=== PATIENT | female | born 1965 | race Two or more races ===

== ENCOUNTER 2024-10-05 10:30 | Outpatient (RCR) | payer MEDICAID, SELFPAY ==
--- NOTE | 2024-09-23 11:42 | PT.ODAYNRPT ---
PT Outpatient Daily Note OP Daily Note Outpatient Physical Therapy Treatment Date: 09/23/24 Visit Reasons: Pain in Left shoulder Subjective: It feels good to stretch the shoulder she said after the andrea HUERTA Objective: See f/S for therex MHP during wansheryl sykes Assessment: Good ER with andrea HUERTA therex Plan: Improve L shoulder ROM Length of Time (minutes) of Treatment: 30 Minutes Procedure Charges Therapeutic Exercise 30 minutes: Yes
--- NOTE | 2024-09-29 13:09 | PT.ODAYNRPT ---
PT Outpatient Daily Note OP Daily Note Outpatient Physical Therapy Treatment Date: 09/29/24 Visit Reasons: Pain in Left shoulder Subjective: Pt reports L shoulder is doing ok, still stiff and achy. Objective: Please see flow sheet for ther ex list. Assessment: AAROM activities completed with pain end range. Plan: Continue with POC. Length of Time (minutes) of Treatment: 30 Minutes Procedure Charges Therapeutic Exercise 30 minutes: Yes
--- NOTE | 2024-10-05 17:35 | PT.ODAYNRPT ---
PT Outpatient Daily Note OP Daily Note Outpatient Physical Therapy Treatment Date: 10/05/24 Visit Reasons: Pain in Left shoulder Subjective: It feels good to stretch the shoulder she said after the wand AAROM Objective: See f/S for therex MHP during wand therex MT: PPM into FF, abd and ER x5' PROM ER: 30 deg Assessment: Continued capsular tightness and pain limits A/PROM. Limited ER PROM. Plan: Improve L shoulder ROM Length of Time (minutes) of Treatment: 30 Minutes Procedure Charges Therapeutic Exercise 30 minutes: Yes
== END 2024-10-16 23:59 | disposition home or self-care (01) ==
LOC: CPTX 10:30
PROVIDERS: PCP Physician Assistant; Referring Provider Physician Assistant; Visit Provider Physician Assistant
DX: M25.512 Pain in left shoulder (principal)
CPT/HCPCS: 97110

== ENCOUNTER 2024-10-18 09:52 | Outpatient (RCR) | payer MEDICAID, SELFPAY ==
--- NOTE | 2024-10-18 10:39 | PTNOTE_ITS ---
PT OP Progress/Discharge Note Date of Service: 10/18/24 Progress Note/DC Note Progress Note/Discharge Note: Progress Note Patient Information Visit Reasons: Pain in left shoulder Service Continue Service or Discharge: Continue Service Status Subjective: Pt reports increased AROM of L shoulder since starting therapy, wants to continue Objective: L shoulder AROM: FF: 105 Abd: 100 ER: 80 Strength: 3+/5 in all planes MT: PPM into FF, abd and ER x7' Assessment: Pt has attended 4/4 therapy sessions with good improvement with AROM but hasn't met goals due to continue L shoulder tightness consistent with adhesive capusli tis. Pt would benefit from continued therapy to meet goals. Plan: Request additional visits x8 to meet goals Procedure Charges Therapeutic Exercise 30 minutes: Yes
== END 2024-11-16 23:59 | disposition home or self-care (01) ==
LOC: CPTX 09:52
PROVIDERS: PCP Physician Assistant; Referring Provider Physician Assistant; Visit Provider Physician Assistant
DX: M25.512 Pain in left shoulder (principal)
CPT/HCPCS: 97110

== ENCOUNTER 2025-01-21 16:50 | Emergency (ER) | payer MEDICAID, SELFPAY ==
[2025-01-21 17:01] VITALS: BP 114/77; PULSE 88; RESP 18; TEMP 36.9; O2SAT 99; BMI 26.9
--- NOTE | 2025-01-21 17:11 | EDNOTE_ITS ---
<Statement entered by Adelaida Mcgrath MD - 01/22/25 16:16> As co-signing physician, I was present and available for consult prn. I concur with the plan and care as documented by the midlevel provider. ED Eye Problem RME/HPI General Chief complaint: Eye Problems Stated complaint: CHILE SPLASHED INTO RIGHT EYE Time Seen by Provider: 01/21/25 17:11 Arrival date/time: 01/21/25 16:50 59-year-old female presents emergency department today stating that she got some chili spicy liquid in her right eye patient reports pain to the right eye with burning Limitations: no limitations Related Data Home Medications ?Medication ?Instructions ?Recorded ?Confirmed metformin 500 mg tablet 500 mg PO BID 04/07/2004/07 Previous Rx's ?Medication ?Instructions ?Recorded docusate sodium 100 mg capsule 100 mg PO BID #30 caps 04/11/20 (Colace) hydrocodone 5 mg-acetaminophen 325 1 tab PO Q6H PRN pa in #20 tabs 04/11/20 mg tablet (Buda) ibuprofen 600 mg tablet 600 mg PO Q8HR PRN pain (sca le 04/11/20 score 4-6) #10 tabs ibuprofen 600 mg tablet 600 mg PO TID PRN pain #30 t abs 12/15/23 hydrocodone 5 mg-acetaminophen 325 1 tab PO BID PRN pa in #10 tabs 05/15/24 mg tablet tobramycin 0.3 % eye drops 2 drp ophthalmic (eye) Q4H 5 days 01/21/25 #5 mL Allergies Allergy/AdvReac Type Severity Reaction Status Date / Time No Known Allergies Allergy Verified 01/21/25 16:51 Review of Systems Review of Systems Systems Reviewed: All systems reviewed, normal except as documented Constitutional Constitutional: Reports system reviewed and no additional complaints, except as documented, Denies fever(s) and Denies headache(s) Eyes Eyes: Reports system reviewed and no additional complaints, except as documented, Denies blind spots, Denies blurry vision, Reports irritation and Reports other (Conjunctival injection right eye) ENT Ears, Nose, Mouth, and Throat: Reports system reviewed and no additional complaints, except as documented, Denies headache(s), Denies nasal congestion and Denies nasal discharge Cardiovascular Cardiovascular: Reports system reviewed and no additional complaints, except as documented, Denies chest pain and Denies dyspnea Respiratory Respiratory: Reports system reviewed and no additional complaints, except as documented, Denies chest congestion, Denies cough and Denies dyspnea Gastrointestinal Gastrointestinal: Reports system reviewed and no additional complaints, except as documented and Denies abdominal pain Integumentary/Breasts Skin/Breast: Reports system reviewed and no additional complaints, except as documented and Denies rash Neurologic Neurologic: Reports system reviewed and no additional complaints, except as documented, Reports as per HPI and Denies headache(s) Past Medical History Past Medical History NEUROLOGIC: Negative Neurological Disorders or Seizures CARDIAC: Positive Cardiac Disorders and Hypercholesterolemia; Negative Congestive Heart Failure RESPIRATORY: Negative Chronic Obstructive Pulmonary Disease (COPD), Tuberculosis or Sleep Apnea GASTROINTESTINAL: Positive Gastrointestinal Disorders and Gall Bladder Disease; Negative Hepatitis GENITOURINARY: Negative Genitourinary Disorders or Renal Disease REPRODUCTIVE: Positive Previous Pregnancies MUSCULOSKELETAL: Negative Musculoskeletal Disorders ENDOCRINE: Positive Endocrine Disorders and Diabetes Mellitus Type 2; Negative Diabetes Mellitus Type 1 HEMATOLOGIC: Negative Blood Disorders OTHER HISTORY: Negative Hospitalization, Autoimmune Disease, Shingles, Falls, Blood Transfusions, Blood Transfusion Reaction, Anesthesia Reactions, Chemotherapy, Radiation Therapy, MRSA, Chicken Pox, Measles, Mumps or Cancer Family History FAMILY HISTORY: Positive Family Cardiac Disorders, Family Gastrointestinal Problems and Family Surgery; Negative Family Psychiatric Problems, Family Respiratory Disorders, Family Cancer or Family Anesthesia Reaction Social History SMOKING STATUS: Never smoker ED Exam General Limitations: Present no limitations General appearance: Present alert and in no apparent distress Head Head exam: Present atraumatic Eye Eye exam: Present PERRL, EOMI and conjunctival injection ENT ENT exam: Present normal exam, normal oropharynx and mucous membranes moist Neck Neck exam: Present normal inspection, full ROM and trachea midline Chest Chest inspection: Present normal inspection and symmetric chest wall rise Respiratory Respiratory exam: Present normal lung sounds bilaterally Cardiovascular Cardiovascular exam: Present regular rate, normal rhythm and normal heart sounds Abdominal Exam Abdominal exam: Present soft and normal bowel sounds Extremities Exam Extremities exam: Present normal inspection and full ROM Back Exam Back exam: Present normal inspection and full ROM Neurological Exam Neurological exam: Present alert, oriented X3 and CN II-XII intact Psychiatric Psychiatric exam: Present normal affect and normal mood Skin Skin exam: Present warm, dry, intact and normal color Course Quality Measures none Orders Category Date Time Status ED Eye Irrigation ONCE Care 01/21/25 17:11 Active Schulz Lamp to Bedside X1 Care 01/21/25 17:11 Active TETRACAINE Op Ashley 0.5% [Pontocaine Op Ashley 0.5%] Med 01/21/25 17:11 Discontinued 1 drop RIGHT EYE X1 ONE Vital Signs Vital signs: Vital Signs Temperature 98.5 F 01/21/25 17:01 Pulse Rate 88 01/21/25 17:01 Respiratory Rate 18 01/21/25 17:01 Blood Pressure 114/77 01/21/25 17:01 Pulse Oximetry (%) 99 01/21/25 17:01 Oxygen Delivery Method Room Air 01/21/25 17:01 O2 saturation 99% on room air within normal limits Eye MDM Narrative MDM Narrative:: 59-year-old female presents emergency department today stating that she got some chili spicy liquid in her right eye patient reports pain to the right eye with burning On exam no acute abnormality noted patient has slight conjunctival injection pupil is normal no hyphema Tetracaine applied to the right eye eyes irrigated copiously patient report symptoms have improved Patient reports no disturbances in vision patient struck to follow-up with eye doctor soon as possible for emergent concerns return immediately Patient data External records reviewed:: [facility] previous records Clinical information provided by:: patient Social determinants that could affect healthcare access:: none Patient has the following chronic illnesses:: None How is presenting disease/condition affected by chronic disease/condition?: no chronic disease Evaluation data The following diagnostics were reviewed and interpreted by me:: other (specify) Lab and/or radiology exams considered but not ordered:: Consider not ordered Interpretation Summary: N/A Medications / Prescriptions Medications or Prescriptions considered but not ordered:: Given Medication administrations:: Medication Administration History Discontinued Medications Tetracaine HCl (Tetracaine Pf Op Ashley 0.5% 4 Ml Drpette) 1 drop RIGHT EYE X1 ONE Stop: 01/21/25 17:12 Last Admin: 01/21/25 17:19 Dose: 1 drop Documented By: Given Consultations Consultation(s) initiated? (list below): No Diagnosis Eye Problem Differential Diagnosis: corneal abrasion, conjunctivitis and corneal ulcer Most likely diagnosis given after review of the tests above:: Irritation right eye Admission Indicated Admission indicated?: not indicated Admission Request Was there a request for admission?: No Disposition Plan Disposition Plan: Discharge Discharge Attestation Discharge Attestation: The patient and all family members were given an opportunity to ask questions and understood the discharge instructions. Discharge instructions specifically effects, indications for sooner follow up or return to the emergency department, and the expected course of current diagnosis. Patient condition: Stable Discharge Plan Plan Patient Disposition: HOME (Self Care) Disposition Comment: Stable Prescriptions/Referrals Prescriptions/Med Rec: New tobramycin 0.3 % drops 2 drp ophthalmic (eye) Q4H 5 Days Qty: 5 0RF No Action metformin 500 mg Tablet 500 mg PO BID docusate sodium [Colace] 100 mg capsule 100 mg PO BID Qty: 30 0RF hydrocodone-acetaminophen [Buda] 5-325 mg tablet 1 tab PO Q6H MDD 4 PRN (Reason: pain) Qty: 20 0RF ibuprofen 600 mg tablet 600 mg PO Q8HR PRN (Reason: pain (scale score 4-6)) Qty: 10 0RF hydrocodone-acetaminophen 5-325 mg tablet 1 tab PO BID MDD 10 PRN (Reason: pain) Qty: 10 0RF ibuprofen 600 mg tablet 600 mg PO TID PRN (Reason: pain) Qty: 30 0RF Problem List Clinical Impression: Corneal irritation of right eye Patient/Caregiver Discharge Instructions Education Materials: How the Eye Works Additional Instructions: Please follow up with your primary care doctor in the next 24-48hrs for any worsening symptoms return here immediately Print Language: Vietnamese Stand Alone Forms: Kerry Award Info., Patient Portal Info Letter PA/CURT Supervising Physician PA/CURT Supervising Physician: Dr. MCGRATH
[2025-01-21] MEDS: TETRACAINE PF OP SOL 0.5% 4 ML DRPETTE 1 DROP RIGHT EYE (17:19)
== END 2025-01-21 17:15 | disposition home or self-care (01) ==
PROVIDERS: Emergency Provider Emergency Medicine; PCP Registered Nurse Community Health
DX: H57.89 Other specified disorders of eye and adnexa (principal)
CPT/HCPCS: 99283

== ENCOUNTER → 2025-02-28 | Outpatient (CLI) | payer MEDICAID, SELFPAY ==
--- NOTE | 2025-02-28 | XR_ITS ---
Examination: Hand, left 3 views Technique: Hand AP, oblique, lateral 3 views Date and time of exam: February 28, 2025 1411 hours INDICATIONS: Acute fracture ulnar styloid tip: Left hand films October 04, 2024 FINDINGS: Severe osteopenia Moderate narrowing radiocarpal joint No acute fracture No cortical bone destruction IMPRESSION: No acute fracture
--- NOTE | 2025-02-28 | XR_ITS ---
Examination: Wrist, left 3 views Technique: Wrist AP, oblique, lateral 3 views Date and time of exam: February 28, 2025 1411 hours INDICATIONS: History ulnar styloid tip fracture and deformity of the navicular and wrist films October 04, 2024 FINDINGS: Severe osteopenia No acute fracture Moderate narrowing radiocarpal joint Moderate narrowing first carpometacarpal joint No avascular necrosis IMPRESSION: Arthritic change as above. No acute fracture
== END | disposition home or self-care (01) ==
PROVIDERS: PCP Nurse Practitioner Gerontology; Referring Provider Nurse Practitioner Gerontology; Visit Provider Nurse Practitioner Gerontology
DX: M79.642 Pain in left hand (principal); M13.832 Other specified arthritis, left wrist
CPT/HCPCS: 73110; 73130

== ENCOUNTER → 2025-07-13 | Outpatient (CLI) | payer MEDICAID, SELFPAY ==
--- NOTE | 2025-07-13 09:15 | XR_ITS ---
Examination: Diagnostic digital mammography, bilateral Computer aided detection 3-D breast Tomosynthesis, bilateral Date and time of exam: 07/13/2025, 9:25 AM Comparisons: July 2012 through July 2016 Indications: Technique: Nonmagnified MLO, CC views of the breasts to been obtained, reconstructed from 3-D Tomosynthesis images. R2 computer aided detection program utilized for evaluation of suspicious masses and/or abnormal calcifications. 3-D Tomosynthesis images obtained. Findings: There are scattered areas of fibroglandular density. No evidence of abnormal masses or suspicious calcifications. Impression: BI-RADS category 1: Negative findings (within normal) Recommend 1 year follow-up mammogram
== END | disposition home or self-care (01) ==
PROVIDERS: PCP Family Medicine; Referring Provider Internal Medicine; Visit Provider Internal Medicine
DX: R92.313 Mammographic fatty tissue density, bilateral breasts (principal)
CPT/HCPCS: 77062; 77066; G0279

== ENCOUNTER 2025-08-16 11:30 | Outpatient (RCR) | payer MEDICAID, SELFPAY ==
--- NOTE | 2025-08-11 11:22 | PTNOTE_ITS ---
PT OP Initial Eval Patient Information Outpatient Physical Therapy Treatment Date: 08/11/25 Visit Reasons: Left shoulder pain Medical Diagnosis: S43.432S Treatment Dx #1: L shoulder pain Treatment Dx #2: Dec L shoulder ROM Start of Care: 08/11/25 Date of Onset: 1.5 yrs ago Smoking Status Smoking Status: Never smoker Initial Assessment Subjective: Pt is 59 yr old pakistani speaking female reports L shoulder pain after falling last year. This limits reaching OH, lifting, and taking care of her adult son with special needs to shower him and HH chores. Increased pain with reaching OH, behind the back and doing hair care. PMH: DM Imaging: Xrays in EMR Pt goal: to reach up without pain and do hair care Objective: L shoulder AROM: ? FF: 95 deg ? Abd: 90 deg ? ER: 65 deg ? HBB: to L glute with pain ? Strength: 3+/5 in all planes Preston's test: positive ? PROM: pain limits PROm in all planes of motion Assessment: Pt presentation consistent with referring Dx of SLAP lesion and partial thickness tear of?L supraspinatus. Pt may benefit from ?skilled therapy and has poor/fair rehab potential to meet goals. Short Term and Care Home Goals 1. Ind with HEP ? 2. Improved AROM of L shoulder to at least 135 deg FF, 125 deg abduction and 90 deg ? ER ? 3. Improved HBB ROM to L3 4. Pt will tolerate HH chores and taking care of adult son with <=3/10 L shoulder pain ? Treatment Plan 1. Manual therapy ? 2. Therex ? 3. Modalities as indicated, moist heat pack, ice, electrical stimulation Frequency and Duration: 2x a week for 2 visits which is what was authorized. After that we will need more authorized visits to continue with therapy Certification Dates: 08/11/25 to 10/10/25 Procedure Charges OP PT Eval Mod Complex 30 minutes: Yes
--- NOTE | 2025-08-16 17:31 | PT.ODS1RPT ---
PT OP Progress/Discharge Note Date of Service: 08/16/25 Progress Note/DC Note Progress Note/Discharge Note: Progress Note Patient Information Visit Reasons: Left shoulder pain Service Continue Service or Discharge: Continue Service Status Subjective: The L shoulder feels about the same and she wants to continue with therapy visits. Objective: Same as time of evaluation Assessment: Pt attended the evaluation and (1/2) Rx sessions with about the same objective findings as the evaluation. She would benefit from continued therapy visits to work toward goals. Plan: Finish remaining authorized visit and then request additional visits x8 Procedure Charges Therapeutic Exercise 30 minutes: Yes
== END 2025-08-16 23:59 | disposition home or self-care (01) ==
LOC: CPTX 11:30
PROVIDERS: PCP Family Medicine; Referring Provider Family Medicine; Visit Provider Family Medicine
DX: M25.512 Pain in left shoulder (principal); S43.432D Superior glenoid labrum lesion of left shoulder, subsequent encounter; W19.XXXD Unspecified fall, subsequent encounter
CPT/HCPCS: 97110; 97162

== ENCOUNTER 2025-08-18 10:47 | Outpatient (RCR) | payer MEDICAID, SELFPAY ==
--- NOTE | 2025-08-18 17:47 | PT.ODS1RPT ---
PT OP Progress/Discharge Note Date of Service: 08/18/25 Progress Note/DC Note Progress Note/Discharge Note: Progress Note Patient Information Visit Reasons: left shoulder pain Service Continue Service or Discharge: Continue Service Status Subjective: The L shoulder feels about the same and she wants to continue with therapy visits. Objective: Same as time of evaluation Assessment: Pt attended the evaluation and (2/2) Rx sessions with about the same objective findings as the evaluation. She would benefit from continued therapy visits to work toward goals. Plan: Request additional visits x8 Procedure Charges Therapeutic Exercise 30 minutes: Yes
== END 2025-09-16 23:59 | disposition home or self-care (01) ==
LOC: CPTX 10:47
PROVIDERS: PCP Family Medicine; Referring Provider Family Medicine; Visit Provider Family Medicine
DX: M25.512 Pain in left shoulder (principal); S43.432D Superior glenoid labrum lesion of left shoulder, subsequent encounter; W19.XXXD Unspecified fall, subsequent encounter
CPT/HCPCS: 97110

== ENCOUNTER → 2025-10-27 | Outpatient (CLI) | payer MEDICAID, SELFPAY ==
--- NOTE | 2025-10-27 13:03 | XR_ITS ---
Examination: Bilateral hands, 6 views. Technique: AP, Oblique, Lateral each hand total 6 views Date and time of exam: October 27, 2025, 1309 hours INDICATION: Bilateral hand pain 3 months COMPARISON: 02/28/2025 Findings: Significant osteopenia Bilateral mild osteoarthritis radiocarpal intercarpal first carpometacarpal joints as well as interphalangeal joint second through fifth digits distal and interphalangeal joint first digit No erosive arthritis No fractures IMPRESSION: Osteoarthritis as above
--- NOTE | 2025-10-27 13:03 | XR_ITS ---
EXAMINATION: Lumbar spine 3 views TECHNIQUE: AP lateral, lateral lower lumbar spine 3 views Date and time: October 27, 2025, 1325 hours, comparison 08/15/2014 INDICATIONS: Low back pain 17 years. FINDINGS: Moderate osteopenia. Lumbar dextroscoliosis 15 degrees No lumbar fracture Diffuse lumbar disc narrowing, advanced at L5-S1 Impression: Diffuse lumbar degenerative disc disease, advanced at L5-S1
--- NOTE | 2025-10-27 13:03 | XR_ITS ---
EXAMINATION: Cervical spine 3 views TECHNIQUE: AP lateral coned AP odontoid cervical spine 3 views Date and time: October 27, 2025, 1321 hours INDICATIONS: Neck pain beginning 1 year ago. FINDINGS: Satisfactory line and cervical vertebral bodies. No cervical fracture. Intact odontoid Mild disc narrowing C4-C5 Prominent cervical spondylosis Cervical thoracic levoscoliosis 8 degrees IMPRESSION: No cervical fracture Early degenerative disc disease C4-C5 Prominent cervical spondylosis
== END | disposition home or self-care (01) ==
LOC: CDIM 12:38
PROVIDERS: PCP Family Medicine; Referring Provider Family Medicine; Visit Provider Family Medicine
DX: M51.370 Other intervertebral disc degeneration, lumbosacral region with discogenic back pain only (principal); M51.360 Other intervertebral disc degeneration, lumbar region with discogenic back pain only; M50.321 Other cervical disc degeneration at C4-C5 level; M47.812 Spondylosis without myelopathy or radiculopathy, cervical region; M18.0 Bilateral primary osteoarthritis of first carpometacarpal joints; M19.042 Primary osteoarthritis, left hand; M19.041 Primary osteoarthritis, right hand
CPT/HCPCS: 72040; 72100; 73130